=== PATIENT | male | born 1975 | race Two or more races ===

== ENCOUNTER 2021-04-05 15:50 | Emergency (ER) | payer MEDICAID, OTHER ==
[~2021-04-05] VITALS: Ht 172.7 cm; Wt 81.6 kg
[2021-04-05 16:02] VITALS: BP 122/80
[2021-04-05 16:47] LABS: Basophils # (auto) 0.1 10 ^3/uL (0-0.2); Basophils % (auto) 0.8 % (0.0-2.0); Eosinophils % (auto) 12.9 % (0.0-7.0); Hematocrit 41.3 % (41.0-53.0); Hemoglobin 13.6 g/dL (13.5-17.5); Lymphocytes % (auto) 25.3 % (10.0-50.0); Mean Corpuscular Hemoglobin 29.1 pg (28.0-32.0); Mean Corpuscular Hgb Conc. 32.8 g/dL (32.0-36.0); Mean Corpuscular Volume 88.6 fL (80.0-100.0); Monocytes # (auto) 0.7 10 ^3/uL (0-1.3); Monocytes % (auto) 9.1 % (0.0-12.0); Neutrophils # (auto) 4.2 10 ^3/uL (1.6-8.6); Neutrophils % (auto) 51.9 % (37.0-80.0); Nucleated Red Blood Cells % 0.1 %; Red Blood Cells 4.66 10^6/uL (4.5-5.90); Red Cell Distribution Width 13.7 % (11.8-14.3)
[2021-04-05 16:58] LABS: Urine Bacteria NONE SEEN /hpf (None Seen); Urine Blood Negative /uL (Negative); Urine Specific Gravity 1.019 (1.001-1.035); Urine WBC 1 /hpf (0 - 3)
[2021-04-05 17:04] LABS: Albumin 3.2 g/dL (3.4-5.0); Calcium 8.6 mg/dL (8.5-10.1); Potassium 3.9 mmol/L (3.5-5.1)
[2021-04-05 17:06] LABS: BUN/Creatinine Ratio 13.9
[2021-04-05 17:09] LABS: Bilirubin, Total 0.6 mg/dL (0.2-1.0); Total Protein 7.2 g/dL (6.4-8.2)
[2021-04-05] MEDS ORDERED: IOHEXOL 300 MG/ML 100ML BOTTLE IJ ONE (18:31)
[2021-04-05 20:55] LABS: INR 1.05 (0.9-1.15)
[2021-04-05] MEDS ORDERED: HYDROcodone-ACET 10/325MG TAB PO ONE (22:15)
== END 2021-04-05 23:18 | disposition home or self-care (01) ==
LOC: EDSEX 15:50 → ER 15:50
DX: S22.42XA Multiple fractures of ribs, left side, initial encounter for closed fracture (principal); S32.028A Other fracture of second lumbar vertebra, initial encounter for closed fracture; S32.038A Other fracture of third lumbar vertebra, initial encounter for closed fracture; S32.048A Other fracture of fourth lumbar vertebra, initial encounter for closed fracture; S36.00XA Unspecified injury of spleen, initial encounter; V89.2XXA Person injured in unspecified motor-vehicle accident, traffic, initial encounter; Y93.89 Activity, other specified; Y92.89 Other specified places as the place of occurrence of the external cause; Y99.8 Other external cause status
CPT/HCPCS: 36415; 73700; 74177; 80053; 81001; 85025; 85610; 99284; Q9967